=== PATIENT | male | born 1935 | race Caucasian/White ===

== ENCOUNTER 2025-03-25 17:26 | Inpatient (IN) | payer MEDICARE, OTHER, SELFPAY ==
[2025-03-25 11:44] VITALS: BP 125/76
[2025-03-25 12:17] LABS: Hematocrit 51.4 % (39.0-52.0); Hemoglobin 16.6 g/dL (13.0-18.0); Mean Corp Hgb Conc. 32.3 g/dL (33.0-37.0); Mean Corpuscular Volume 106.2 fL (80.0-94.0); Nucleated Red Blood Cells % 0 % (-); Platelet Count 233 10^3/uL (130-400); Red Cell Dist. Width 13.2 % (11.5-14.5)
[2025-03-25 12:31] LABS: ALT (SGPT) 23 U/L (0-50); AST (SGOT) 26 U/L (17-59); Albumin 4.1 g/dl (3.5-5.0); Alkaline Phosphatase 74 U/L (38-126); Blood Urea Nitrogen 30 mg/dl (9-20); Calcium 9.2 mg/dl (8.4-10.2); Carbon Dioxide 20 mmol/L (22-30); Chloride 105 mmol/L (98-107); Glucose 109 mg/dl (70-99); Potassium 4.3 mmol/L (3.5-5.1); Sodium 135 mmol/L (135-145); Total Protein 7.7 g/dl (6.3-8.2); eGFR 44.78
[2025-03-25 13:40] VITALS: BMI 25.8
--- NOTE | 2025-03-25 13:45 | ED.GENMED ---
History of Present Illness
<THERON Shafer - Last Filed: 03/25/25 19:50>
General
Chief Complaint: Abdominal Symptoms
Source: patient
Exam Limitations: none
Time Seen by Provider: 03/25/25 13:41
Nursing documentation reviewed up to this point in time: agreed with
History of Present Illness
History of Present Illness:
89-year-old male presents to the ER for evaluation of loose stool which started February 28. He was diagnosed with C. difficile on March 04. He was started antibiotics February and vancomycin follow-up and completed 10 days of antibiotics.
Patient started with loose stools again 3 to 4 days ago. He has gone approximately 3 times per day. He he does feel slightly tired compared to normal and is not eating or drinking as much because of the diarrhea. He denies any fever or chills.
He denies any abdominal pain.
Phy Exam
<THERON Shafer - Last Filed: 03/25/25 19:50>
General Physical Exam
General Presentation: no apparent distress
General age: appears stated age
General Skin: warm and dry
General Habitus: normal
General Mental: alert
General Hydration: dry mucous membranes
Gastrointestinal Exam
Gastrointestinal Exam: non tender and soft
Course
<THERON Shafer - Last Filed: 03/25/25 19:50>
Orders/Labs/Results
Orders:
Orders
03/25/25 Breakfast
Cholesterol Lowering
At Your Request: Full Participation
Cholesterol Lowering: Sodium, 2 Gram
Low Residue
Cholesterol Lowering
At Your Request: Full Participation
Cholesterol Lowering: Sodium, 2 Gram
03/25/25 11:58
Complete Blood Count/With Diff Urgent
Comprehensive Metabolic Panel Urgent
03/25/25 13:55
0.9% Sodium Chloride 1000 ml [Nss] 1,000 ml IV BOLUS
03/25/25 14:11
Electrocardiogram (*1) Stat
Reason for Study: Other
Other Reason for Exam: chest pain
Cardiac Monitoring- Treatment ONCE
EKG- Treatment ONCE
03/25/25 14:57
Admit/Transfer Patient As Directed
Co-Sign Provider:
Level of Care: Inpatient admission
Assign to:: Medical/Surgical
Physician / Group: Hospitalist
Diagnosis: Diarrhea and renal insufficiency
Reason for Hospitalization: Diarrhea and renal insufficiency
Expected length of stay greater than two midnights?: Yes
ELOS- Estimated Length of Stay in days: 3
I certify the patient meets the requirements for IP care: Yes
03/25/25 14:58
PRN Pain Medication Management As Directed
May give lesser potent ordered pain med per pt: Yes
preference::
Protocol:: Medication orders for pain may be administered in a
manner that supports deferring to patient preference
when the pt is:
- Requesting an ordered lesser potent pain medication.
Least to most potent pain medications are defined
as: acetaminophen < NSAID < tramadol < opioids
(morphine, oxycodone, hydromorphone).
- Requesting a lesser dose of the same medication IF
ORDERED.
- Requesting a less intrusive route of administration
if both routes are prescribed by the provider (PO <
IV).
03/25/25 15:26
Code Status As Directed
Resuscitation Status: Full Code
Activity As Directed
Activity Level: With Assistance
Notify MD As Directed
Notify physician if: Bridge Admission orders placed.
Notify attending physician:
-- upon arrival to unit
OR
-- when patient is identified as an ED hold
Vital Signs As Directed
Frequency: Per unit guidelines
O2 Therapy [RESP] Routine
Titrate/Wean O2 to maintain O2 sat greater than (%): 92
03/25/25 19:23
0.9% Sodium Chloride 1000 ml [Nss] 1,000 ml IV 100 mls/hr
Acetaminophen [Tylenol] 650 mg PO Q4HPRN PRN
Lactobac/Bifidobac [Visbiome] 1 cap PO DAILY
03/25/25 19:23
Admit Patient As Directed
Co-Sign Provider:
Level of Care: Inpatient admission
Assign to:: Medical/Surgical
Physician / Group: Hospitalist
Diagnosis: Diarrhea & ROYR
Reason for Hospitalization: Diarrhea & RORY
Expected length of stay greater than two midnights?: Yes
ELOS- Estimated Length of Stay in days: 3
I certify the patient meets the requirements for IP care: Yes
Activity As Directed
Activity Level: With Assistance
Intake/ Output As Directed
Frequency: Per unit guidelines
Precautions As Directed
Type of Precautions: Contact
Vital Signs As Directed
Frequency: Per unit guidelines
PRN Pain Medication Management As Directed
May give lesser potent ordered pain med per pt: Yes
preference::
Protocol:: Medication orders for pain may be administered in a
manner that supports deferring to patient preference
when the pt is:
- Requesting an ordered lesser potent pain medication.
Least to most potent pain medications are defined
as: acetaminophen < NSAID < tramadol < opioids
(morphine, oxycodone, hydromorphone).
- Requesting a lesser dose of the same medication IF
ORDERED.
- Requesting a less intrusive route of administration
if both routes are prescribed by the provider (PO <
IV).
03/25/25 20:00
Apixaban [Eliquis] 5 mg PO BID
Dorzolamide HCl [Trusopt 2% Ophthalmic Solution] 1 drop OPHTH BID
03/26/25 06:00
Complete Blood Count/With Diff IN AM
Comprehensive Metabolic Panel IN AM
Levothyroxine [Synthroid] 75 mcg PO DAILY@0600
03/26/25 08:00
Atorvastatin [Lipitor] 40 mg PO DAILY
Fidaxomicin [Dificid] 200 mg PO BID
Ramipril [Altace] 10 mg PO DAILY
03/27/25 06:00
Complete Blood Count/With Diff IN AM
Comprehensive Metabolic Panel IN AM
03/28/25 06:00
Complete Blood Count/With Diff IN AM
Comprehensive Metabolic Panel IN AM
03/29/25 06:00
Complete Blood Count/With Diff IN AM
Comprehensive Metabolic Panel IN AM
03/30/25 06:00
Complete Blood Count/With Diff IN AM
Comprehensive Metabolic Panel IN AM
03/31/25 06:00
Complete Blood Count/With Diff IN AM
Comprehensive Metabolic Panel IN AM
04/01/25 06:00
Complete Blood Count/With Diff IN AM
Comprehensive Metabolic Panel IN AM
04/02/25 06:00
Complete Blood Count/With Diff IN AM
Comprehensive Metabolic Panel IN AM
04/03/25 06:00
Complete Blood Count/With Diff IN AM
Comprehensive Metabolic Panel IN AM
04/04/25 06:00
Complete Blood Count/With Diff IN AM
Comprehensive Metabolic Panel IN AM
Abnormal Lab Results
03/25/25
11:58
MCV 106.2 H fL
(80.0-94.0)
MCH 34.3 H pg
(27.0-31.0)
MCHC 32.3 L g/dL
(33.0-37.0)
Absolute Lymphs (auto) 1.0 L 10^3/uL
(1.2-3.4)
Absolute Monos (auto) 1.4 H 10^3/uL
(0.1-0.6)
Lymphocytes % 13.3 L %
(20.5-51.1)
Monocytes % 17.7 H %
(1.7-9.3)
Carbon Dioxide 20 L mmol/L
(22-30)
BUN 30 H mg/dl
(9-20)
Creatinine 1.5 H mg/dL
(0.7-1.3)
Glucose 109 H mg/dl
(70-99)
Total Bilirubin 1.9 H mg/dl
(0.2-1.3)
03/25/25 11:58
03/25/25 11:58
Vital Signs
Initial and Last Documented VS:
Initial Vital Signs
Temp Pulse Resp BP Pulse Ox
98.1 F 79 16 125/76 98
03/25/25 11:44 03/25/25 11:44 03/25/25 11:44 03/25/25 11:44 03/25/25 11:44
Last Documented Vital Signs
Temp Pulse Resp BP Pulse Ox
98.1 F 69 15 126/68 97
03/25/25 11:44 03/25/25 17:15 03/25/25 17:15 03/25/25 17:00 03/25/25 17:15
Equalizing Saw Operator consulted with Physician
Equalizing Saw Operator consulted with physician?: Yes
Name of Physician Consulted: Rosalva
<Osvaldo Kohler MD - Last Filed: 03/25/25 14:06>
Orders/Labs/Results
Orders:
Orders
03/25/25 Breakfast
Cholesterol Lowering
At Your Request: Full Participation
Cholesterol Lowering: Sodium, 2 Gram
Low Residue
Cholesterol Lowering
At Your Request: Full Participation
Cholesterol Lowering: Sodium, 2 Gram
03/25/25 11:58
Complete Blood Count/With Diff Urgent
Comprehensive Metabolic Panel Urgent
03/25/25 13:55
0.9% Sodium Chloride 1000 ml [Nss] 1,000 ml IV BOLUS
03/25/25 14:11
Electrocardiogram (*1) Stat
Reason for Study: Other
Other Reason for Exam: chest pain
Cardiac Monitoring- Treatment ONCE
EKG- Treatment ONCE
03/25/25 14:57
Admit/Transfer Patient As Directed
Co-Sign Provider:
Level of Care: Inpatient admission
Assign to:: Medical/Surgical
Physician / Group: Hospitalist
Diagnosis: Diarrhea and renal insufficiency
Reason for Hospitalization: Diarrhea and renal insufficiency
Expected length of stay greater than two midnights?: Yes
ELOS- Estimated Length of Stay in days: 3
I certify the patient meets the requirements for IP care: Yes
03/25/25 14:58
PRN Pain Medication Management As Directed
May give lesser potent ordered pain med per pt: Yes
preference::
Protocol:: Medication orders for pain may be administered in a
manner that supports deferring to patient preference
when the pt is:
- Requesting an ordered lesser potent pain medication.
Least to most potent pain medications are defined
as: acetaminophen < NSAID < tramadol < opioids
(morphine, oxycodone, hydromorphone).
- Requesting a lesser dose of the same medication IF
ORDERED.
- Requesting a less intrusive route of administration
if both routes are prescribed by the provider (PO <
IV).
03/25/25 15:26
Code Status As Directed
Resuscitation Status: Full Code
Activity As Directed
Activity Level: With Assistance
Notify MD As Directed
Notify physician if: Bridge Admission orders placed.
Notify attending physician:
-- upon arrival to unit
OR
-- when patient is identified as an ED hold
Vital Signs As Directed
Frequency: Per unit guidelines
O2 Therapy [RESP] Routine
Titrate/Wean O2 to maintain O2 sat greater than (%): 92
03/25/25 19:23
0.9% Sodium Chloride 1000 ml [Nss] 1,000 ml IV 100 mls/hr
Acetaminophen [Tylenol] 650 mg PO Q4HPRN PRN
Lactobac/Bifidobac [Visbiome] 1 cap PO DAILY
03/25/25 19:23
Admit Patient As Directed
Co-Sign Provider:
Level of Care: Inpatient admission
Assign to:: Medical/Surgical
Physician / Group: Hospitalist
Diagnosis: Diarrhea & RORY
Reason for Hospitalization: Diarrhea & RORY
Expected length of stay greater than two midnights?: Yes
ELOS- Estimated Length of Stay in days: 3
I certify the patient meets the requirements for IP care: Yes
Activity As Directed
Activity Level: With Assistance
Intake/ Output As Directed
Frequency: Per unit guidelines
Precautions As Directed
Type of Precautions: Contact
Vital Signs As Directed
Frequency: Per unit guidelines
PRN Pain Medication Management As Directed
May give lesser potent ordered pain med per pt: Yes
preference::
Protocol:: Medication orders for pain may be administered in a
manner that supports deferring to patient preference
when the pt is:
- Requesting an ordered lesser potent pain medication.
Least to most potent pain medications are defined
as: acetaminophen < NSAID < tramadol < opioids
(morphine, oxycodone, hydromorphone).
- Requesting a lesser dose of the same medication IF
ORDERED.
- Requesting a less intrusive route of administration
if both routes are prescribed by the provider (PO <
IV).
03/25/25 20:00
Apixaban [Eliquis] 5 mg PO BID
Dorzolamide HCl [Trusopt 2% Ophthalmic Solution] 1 drop OPHTH BID
03/26/25 06:00
Complete Blood Count/With Diff IN AM
Comprehensive Metabolic Panel IN AM
Levothyroxine [Synthroid] 75 mcg PO DAILY@0600
03/26/25 08:00
Atorvastatin [Lipitor] 40 mg PO DAILY
Fidaxomicin [Dificid] 200 mg PO BID
Ramipril [Altace] 10 mg PO DAILY
03/27/25 06:00
Complete Blood Count/With Diff IN AM
Comprehensive Metabolic Panel IN AM
03/28/25 06:00
Complete Blood Count/With Diff IN AM
Comprehensive Metabolic Panel IN AM
03/29/25 06:00
Complete Blood Count/With Diff IN AM
Comprehensive Metabolic Panel IN AM
03/30/25 06:00
Complete Blood Count/With Diff IN AM
Comprehensive Metabolic Panel IN AM
03/31/25 06:00
Complete Blood Count/With Diff IN AM
Comprehensive Metabolic Panel IN AM
04/01/25 06:00
Complete Blood Count/With Diff IN AM
Comprehensive Metabolic Panel IN AM
04/02/25 06:00
Complete Blood Count/With Diff IN AM
Comprehensive Metabolic Panel IN AM
04/03/25 06:00
Complete Blood Count/With Diff IN AM
Comprehensive Metabolic Panel IN AM
04/04/25 06:00
Complete Blood Count/With Diff IN AM
Comprehensive Metabolic Panel IN AM
Abnormal Lab Results
03/25/25
11:58
MCV 106.2 H fL
(80.0-94.0)
MCH 34.3 H pg
(27.0-31.0)
MCHC 32.3 L g/dL
(33.0-37.0)
Absolute Lymphs (auto) 1.0 L 10^3/uL
(1.2-3.4)
Absolute Monos (auto) 1.4 H 10^3/uL
(0.1-0.6)
Lymphocytes % 13.3 L %
(20.5-51.1)
Monocytes % 17.7 H %
(1.7-9.3)
Carbon Dioxide 20 L mmol/L
(22-30)
BUN 30 H mg/dl
(9-20)
Creatinine 1.5 H mg/dL
(0.7-1.3)
Glucose 109 H mg/dl
(70-99)
Total Bilirubin 1.9 H mg/dl
(0.2-1.3)
03/25/25 11:58
03/25/25 11:58
Vital Signs
Initial and Last Documented VS:
Initial Vital Signs
Temp Pulse Resp BP Pulse Ox
98.1 F 79 16 125/76 98
03/25/25 11:44 03/25/25 11:44 03/25/25 11:44 03/25/25 11:44 03/25/25 11:44
Last Documented Vital Signs
Temp Pulse Resp BP Pulse Ox
98.1 F 69 15 126/68 97
03/25/25 11:44 03/25/25 17:15 03/25/25 17:15 03/25/25 17:00 03/25/25 17:15
<THERON Shafer - Last Filed: 03/25/25 19:50>
MDM/Problems Addressed
Differential Diagnosis Includes:
Not limited to recurrence of C. difficile, dehydration
MDM/Problems Addressed:
89-year-old male presents back with diarrhea. He was recently diagnosed with C. difficile March 04 and completed 10 days of Flagyl and vancomycin. Symptoms started again several days ago. He denies any pain. Denies any fevers abdomen soft
nontender he is afebrile. He is dry on exam and is in acute renal insufficiency. Fluids ordered. Case reviewed with ED physician. Would recommend admission. Case also reviewed with infectious disease C. difficile a likely be positive again we
will hold off on additional culture. Will start oral Dificid
<THERON Shafer - Last Filed: 03/25/25 19:50>
*Pulse Oximetry
SaO2: 98
Oxygen Mode of Delivery: Room air
Patient hypoxic: no
*Critical Care Note
Total Time (30-74mins, 75-104mins- exclusive of procedures): Not Applicable
<THERON Shafer - Last Filed: 03/25/25 19:50>
Patient Management
Discussion with other providers: [place] (infectious disease )
ED Attending Note
<THERON Shafer - Last Filed: 03/25/25 19:50>
-
Portions of this chart may have been created with voice recognition software.� Occasional wrong word or��sound alike� substitutions may have occurred due to the inherent limitations of voice recognition software.
<Osvaldo Kohler MD - Last Filed: 03/25/25 14:06>
ED Attending Note
Patient seen and examined by attending physician: Yes
I performed the substantive portion of visit, reviewed & personally made and approve the management plan that is documented in note by myself or CELSO.: Yes
ED Attending Note:
I have seen and evaluated the patient with a fnol-[id number]-thnu encounter. I have spoken to the [CELSO] and involved in the medical history, the physical exam, medical decision making.
Evaluation and management service: agree unless noted differently below.
Results interpretation: agree unless noted differently below.
89-year-old male with recent C. difficile presenting to the emergency department recurrent diarrhea. Patient states that on March 04 he was diagnosed with C. difficile and placed on vancomycin and Flagyl. He finished them about 3 to 4 days ago
and had recurrent symptoms. He denies any nausea or vomiting. No lightheadedness dizziness. No abdominal pain. No blood in his stool. On arrival vitals are unremarkable. On exam patient does have slightly dry oral mucosa. His abdomen is
benign nondistended nontender. 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 Retesting will probably be positive. Discussed with infectious disease who is in agreement that the test will be positive. Recommend treating with Dificid.
Patient does have an RORY on labs so will admit for IV fluids and antibiotics.
Discharge Plan
Departure
Patient Disposition: Admit
Date of Disposition: 03/25/25
Time of Disposition: 14:08
Admit to: Med/Surg
Admit to doctor: hospitalist
Presentation/result/management discussed w/ accepting MD/DO: Hospitalist
Patient with high blood pressure during this ER visit?: No
Condition: Fair
Covid-19: Not Applicable
Discharge Problem:
Diarrhea, Acute kidney insufficiency
Interventions
Interventions:
*Risk Screen - Suicide Last Done: 03/25/25 11:44
*General Assessment Last Done: 03/25/25 11:44
*Neglect/Abuse Screening Last Done: 03/25/25 11:44
*ED- Fall Risk Assessment Last Done: 03/25/25 13:40
*ED COVID-19 Vaccine History Last Done: 03/25/25 13:40
*ED Influenza Vaccine History Last Done: 03/25/25 13:40
*Nursing Disposition Last Done: 03/25/25 19:20
XH-Truvmg-Ywgzjvkcic Assessment Last Done: 03/25/25 13:40
Discharge Date and Time
Discharge Date/Time: 03/25/25 19:20
[2025-03-25] MEDS: NSS 1000 IV ×2 (14:00→21:33)
--- NOTE | 2025-03-25 15:50 | CM ---
Chart reviewed and spoke with patient and son Jatinder at bedside
Patient lives alone in a 2 story home with 2 FREDY with rails 14 steps to full bath
ambulating with cane and drives
Pt states he is independent
Grown 5 kids ; Dtr Roslyn lives in [place] and checks on him daily
Another dtr in [place]
Son Nriaj usually stays with patient for 3 -4 months yearly. Niraj would stay with pt for another month
Son Jatinder is in [place] but he is very involved in his care also
DME cane
PCP Dr. Susan Perry
RX plan yes
Pharmacy [facility] [address] in [place]
VN use; pt and son do not remember the name of C
SNF : [facility] last year after a fall with rib fracture and concussion
'It was good 12 years ago when my was there but it is NOT anymore'
DCP is to return with services vs SNF pending w/u and PT eval
Family is very supportive
CM will continue to follow up for any dcp needs
[2025-03-25 16:30] VITALS: BP 127/78
--- NOTE | 2025-03-25 16:57 | HPS.HSE ---
Addendum entered and electronically signed by Sahil Martinez MD 03/25/25 20:48:
Attending Addendum-
I performed a history and physical exam of the patient and discussed his management with the resident. I reviewed the resident's note and agree with the documented findings and plan of care CC/HPI- Patient presents to ED with diarrhea x 3 days,
states he has had multiple episodes per day. Feels weak and decreased intake due to fear of diarrhea. recent dx c diff completed 10 day course abx. Denies fevers chills abd pain NV. Seen with son present. Full 12 point ROS reviewed and negative
except as documented Exam- vitals reviewed in EMR GEN-NAD Heart irreg irreg lungs clear abd soft NT ND pos BS LE no edema Neuro AAO x 3
Plan:
# Recurrent C diff infection
- recently completed course of vanco/flagyl on 03/14
- start Dificid x 10 days
- cont IVF
- CTM closely for worsening of sxs
# RORY-prerenal
- cont IVF, hold ramipril
-repeat BMP in am
# Permanent A fib
- cont eliquis
# HTN- hold ramipril due to RORY
# Hypothyroidism- cont levo
# CAD s/p stents- cont atorvastatin
DVTp-eliquis
CODE-FULL
Dispo DC home in am
ACP
Patient consented to discuss, was with son, time spent explanation of advance directives, changes in health status, patient�s health care wishes if the patient becomes unable to make health decisions, goals of care, code status, and prognosis- 16
minutes
Time spent coordinating care, review of plan of care with resident, personally reviewed previous records in EMR, med rec, labs, radiology, d/w nursing, family total time documented is exclusive of any additional time listed that was spent in advance
care planning discussion -�75 minutes
Original Note:
Family Physician
-
Family Physician: Susan Perry,
Chief Complaint
-
Diarrhea
History of Present Illness
Mr. Jatinder Romo (Walter) is a 89-year-old man with a PMH notable for permanent A-fib (Eliquis), CAD s/p 2 stents, hyperlipidemia, hypertension, hypothyroidism, and glaucoma, who presented from home with diarrhea for 3 days after recently finishing
C. difficile antibiotic course.
He developed diarrhea on February 28. He was diagnosed with C. difficile on March 04. He completed a 10-day course of Flagyl and vancomycin. His diarrhea restarted 3 days ago, with around 3 bowel movements per day.
In the ED, vital signs were stable. CBC normal. CMP with creatinine of 1.5, BUN 30, bicarb 20, glucose 109, total bili 1.9. Baseline creatinine unknown, as he does not have prior labs in this EMR. He received IV fluids.
Medical History
Past Medical History
Past Medical History: Reports Arrhythmia (Persistent A-fib (Eliquis)), CAD (Status post 2 stents; atorvastatin and Eliquis), HTN (Ramipril), Hypercholesterolemia (Atorvastatin), Hypothyroidism (Levothyroxine) and Other (Glaucoma)
Past Surgical History: Reports None
Social History
Tobacco: Non-smoker
Alcohol: Occasional
Drug: None
Living: Alone (1 son lives with him for 3 months of the year and is living with him currently)
Employment: Retired
Family History
Family History: Not pertinent
Allergies / Home Medications
Allergies reflects when Allergies were last updated in [employer].
Home Medications with original date entered in [employer]
Allergy/Medication List:
Allergies
Allergy/AdvReac Type Severity Reaction Status Date / Time
No Known Allergies Allergy Verified 03/25/25 11:49
Home Medications
apixaban 5 mg tablet (Eliquis) 5 mg PO BID Blood Clot Prevention/Tx 03/25/25
atorvastatin 40 mg tablet (Lipitor) 40 mg PO DAILY High Cholesterol 03/25/25
dorzolamide-timolol (PF) 2 %-0.5 % eye drops in a dropperette (Cosopt (PF)) 1 drp BOTH EYES BID Eye Condition 03/25/25
levothyroxine 75 mcg tablet (Synthroid) 75 mcg PO DAILY Thyroid 03/25/25
ramipril 10 mg capsule 10 mg PO DAILY Heart Disease/Condition 03/25/25
Review of Systems
-
History Source: Patient
A 12 point ROS was completed and negative except as noted: Yes
Physical Exam
Vital Signs
Vital Signs
Temp Pulse Resp BP Pulse Ox
98.1 F 65 17 125/76 98
03/25/25 11:44 03/25/25 16:15 03/25/25 16:15 03/25/25 11:44 03/25/25 16:15
Physical Exam
General: Well Developed, Well Nourished, No Apparent Distress, Comfortable and Conversant
HEENT: NormoCephalic, Anicteric, Atraumatic, No Ptosis, Nose Appears Normal, Ears Appear Normal and Hearing Impaired
Respiratory: Clear
Cardiac: S1/S2 and Regular Rhythm
GI: Soft, Non Tender, Non Distended and Normal Bowel Sounds
Musculoskeletal: Clubbing, No Clubbing and Cyanosis
Skin: Warm and Dry
Neuro: Awake, Alert, Nonfocal/grossly intact and Cranial Nerves Intact
Psych: Calm
Laboratory Results
-
03/25/25 11:58
03/25/25 11:58
Laboratory Results
Total Bilirubin 1.9 mg/dl (0.2-1.3) H 03/25/25 11:58
AST 26 U/L (17-59) 03/25/25 11:58
ALT 23 U/L (0-50) 03/25/25 11:58
Alkaline Phosphatase 74 U/L (38-126) 03/25/25 11:58
Impression/Plan
-
IMPRESSION:
Mr. Jatinder Romo (Walter) is a 89-year-old man with a PMH notable for permanent A-fib (Eliquis), CAD s/p 2 stents, hyperlipidemia, hypertension, hypothyroidism, and glaucoma, who presented from home with recurrent diarrhea for 3 days after recently
finishing C. difficile antibiotic course.
He developed diarrhea on February 28. He was diagnosed with C. difficile on March 04. He completed a 10-day course of Flagyl and vancomycin. His diarrhea restarted 3 days ago, with around 3 bowel movements per day.
In the ED, vital signs were stable. CBC normal. CMP with creatinine of 1.5, BUN 30, bicarb 20, glucose 109, total bili 1.9. Baseline creatinine unknown, as he does not have prior labs in this EMR. He received IV fluids.
PLAN:
#Recurrent C. difficile
S/p completing Flagyl and vancomycin 10-day course
C. difficile antigen/toxin testing not pursued, since it will be positive shortly after prior C. difficile infection whether or not the patient has needed
� Fidaxomicin 200 mg every 12 hours for 10 days
� Will ask patient case manager to investigate enrique for this patient's insurance and inquire if it is cost preoperative
� Low residue diet
� Probiotic
#Renal insufficiency
Creatinine 1.5, BUN 30 on admission
Baseline creatinine unknown, as no prior labs in this EMR. Patient's son will attempt to find prior labs at outside facility
� IV normal saline at 100 mL/h
� Trend creatinine
#Permanent A-fib
� Continue Eliquis 5 mg p.o. twice daily
#CAD status post 2 stents
#HLD
� Continue atorvastatin 40 mg p.o. daily
� Continue Eliquis 5 mg p.o. twice daily
#Hypertension
� Continue ramipril 10 mg p.o. daily
#Hypothyroidism
� Continue levothyroxine 75 mcg p.o. daily
#Glaucoma
� Continue dorzolamide�timolol eyedrops
DVT prophylaxis: Eliquis 5 mg p.o. twice daily
CODE STATUS: Full code
[2025-03-25 17:00] VITALS: BP 126/68
[2025-03-25] MEDS: DIFICID 200 MG PO (17:55)
[2025-03-25 19:42] VITALS: BMI 25.0
--- NOTE | 2025-03-25 19:44 | PTCARENOTE ---
Pt arrived to unit approx 1929, AAOx3, oriented to unit, bed in lowest position, bed alarm on, bed locked, and call colón in reach.
[2025-03-25 20:03] VITALS: BP 131/74
[2025-03-25] MEDS: ELIQUIS 2.5 MG PO (21:33)
[2025-03-25] MEDS: TRUSOPT 2% OPHTHALMIC SOLUTION 1 DROP OPHTH (21:34)
[2025-03-25] MEDS: VISBIOME 1 CAP PO (21:34)
[2025-03-25 23:30] VITALS: BP 143/65
[2025-03-26 00:16] VITALS: BMI 25.0
[2025-03-26] MEDS: SYNTHROID 75 MCG PO (06:25)
[2025-03-26] MEDS: NSS 1000 IV (06:25)
[2025-03-26 07:00] VITALS: BP 142/72
[2025-03-26 08:03] LABS: Hematocrit 43.8 % (39.0-52.0); Hemoglobin 14.8 g/dL (13.0-18.0); Mean Corp Hgb Conc. 33.8 g/dL (33.0-37.0); Mean Corpuscular Volume 102.1 fL (80.0-94.0); Nucleated Red Blood Cells % 0 % (-); Platelet Count 209 10^3/uL (130-400); Red Cell Dist. Width 13.0 % (11.5-14.5)
[2025-03-26 08:32] LABS: ALT (SGPT) 20 U/L (0-50); AST (SGOT) 24 U/L (17-59); Albumin 3.2 g/dl (3.5-5.0); Alkaline Phosphatase 70 U/L (38-126); Blood Urea Nitrogen 26 mg/dl (9-20); Calcium 8.2 mg/dl (8.4-10.2); Carbon Dioxide 21 mmol/L (22-30); Chloride 109 mmol/L (98-107); Estimated Creatinine Clearance 43 ml/min; Glucose 100 mg/dl (70-99); Potassium 3.6 mmol/L (3.5-5.1); Sodium 139 mmol/L (135-145); Total Protein 6.0 g/dl (6.3-8.2); eGFR 53.17
--- NOTE | 2025-03-26 09:06 | W.PN.HOSP.TC ---
Addendum entered and electronically signed by Pietro Miller MD 03/26/25 14:17:
I saw and evaluated the patient. I reviewed the resident�s note and agree with findings and plan as documented in the resident�s note.
First C. difficile recurrence -patient was diagnosed with C. difficile colitis earlier this month after having a prostate procedure. Patient was started on course of vancomycin and Flagyl by urologist. Patient had resolution of diarrhea with
formed stools in between. Came back with new onset of liquid diarrhea. No associated abdominal pain/nausea/vomiting. Patient is afebrile not in shock. Renal function were minimally impaired which has improved post IV hydration.
Case discussed with infectious disease physician and recommended fidaxomicin 14-day course, patient is aware that insurance may not cover and may have to pay [id number] which patient is willing to do. If patient not able to get oral fidaxomicin
will require to be put on a tapering course of oral vancomycin.
Patient to follow-up with infectious disease physician in the office.
Acute kidney injury -improved post IV hydration. Encourage oral intake for next few days postdischarge.
Patient is medically stable for discharge.
Original Note:
Today's Communication/Plan
-
Corresponded with ID regarding plan: Dificid 200 mg twice daily for 14 days. Outpatient ID follow-up in 2 to 4 weeks.
Discharged patient today.
Assessment / Plan
Assessment / Plan
IMPRESSION:
Mr. Jatinder Romo (Walter) is a 89-year-old man with a PMH notable for permanent A-fib (Eliquis), CAD s/p 2 stents, hyperlipidemia, hypertension, hypothyroidism, and glaucoma, who presented from home with recurrent diarrhea for 3 days after recently
finishing C. difficile antibiotic course.
He developed diarrhea on February 28. He was diagnosed with C. difficile on March 04. He completed a 10-day course of Flagyl and vancomycin. His diarrhea restarted 3 days ago, with around 3 bowel movements per day.
In the ED, vital signs were stable. CBC normal. CMP with creatinine of 1.5, BUN 30, bicarb 20, glucose 109, total bili 1.9. Baseline creatinine unknown, as he does not have prior labs in this EMR. He received IV fluids.
PLAN:
#Recurrent C. difficile
S/p completing Flagyl and vancomycin 10-day course
C. difficile antigen/toxin testing not pursued, since it will be positive shortly after prior C. difficile infection whether or not the patient has needed
� Fidaxomicin 200 mg every 12 hours. 2 doses received inpatient. 14-day course per ID
� Informed patient and family members that Dificid can be expensive and advised them to call his pharmacy to ask for the enrique of Dificid with his insurance. Patient and family members stated they want the best treatment, and asking the pharmacy
for the enrique as high of a priority
� Counseled patient to follow-up with ID outpatient in 2 to [address] Dobbins
� Low residue diet
� Probiotic
#Renal insufficiency
Creatinine 1.5, BUN 30 on admission. Creatinine 1.3 next day
Baseline creatinine unknown, as no prior labs in this EMR. Patient's son will attempt to find prior labs at outside facility
� IV normal saline. Considering not renewing due to hyperchloremia, vitals stable with blood pressure in the 140s and heart rate 60s, and creatinine decreasing to 1 point
� Trend creatinine
#Permanent A-fib
� Continue Eliquis 5 mg p.o. twice daily
#CAD status post 2 stents
#HLD
� Continue atorvastatin 40 mg p.o. daily
� Continue Eliquis 5 mg p.o. twice daily
#Hypertension
� Continue ramipril 10 mg p.o. daily
#Hypothyroidism
� Continue levothyroxine 75 mcg p.o. daily
#Glaucoma
� Continue dorzolamide�timolol eyedrops
DVT prophylaxis: Eliquis 5 mg p.o. twice daily
CODE STATUS: Full code
Anticipated Discharge: Today
Subjective/Interval History
-
Date of Service: March 26, 2025
No acute events overnight. Patient states he is feeling better overall and less weak. Patient does not feel his diarrhea has changed much, but is slightly more solid.
Objective Data
-
Labs:
Laboratory Results
03/26/25
07:02
WBC 7.7
Hgb 14.8
Hct 43.8
Plt Count 209
Sodium 139
Potassium 3.6
Chloride 109 H
Carbon Dioxide 21 L
BUN 26 H
Creatinine 1.3
Glucose 100 H
Calcium 8.2 L
Total Bilirubin 1.0
AST 24
ALT 20
Alkaline Phosphatase 70
Vital Signs:
Vital Signs
Temp Pulse Resp BP Pulse Ox
97.8 F 60 20 142/72 95
03/26/25 07:00 03/26/25 07:00 03/26/25 07:00 03/26/25 07:00 03/26/25 07:00
Review of Systems
-
History Source: Patient
All other systems: Reviewed and negative
Physical Exam
-
General: Well Developed, Well Nourished, No Apparent Distress, Comfortable and Conversant
HEENT: Normocephalic, Atraumatic, Anicteric, Nose Appears Normal and Ears Appear Normal
Respiratory: Clear to Auscultation
Cardiac: Regular Rhythm and S1/S2
GI: Soft, Nontender, Nondistended and Normal Bowel Sounds
Musculoskeletal: No Clubbing, No Cyanosis and No Edema
Skin: Warm and Dry
Neuro: Awake and Alert
Psych: Calm
[2025-03-26] MEDS: ELIQUIS 2.5 MG PO (09:13)
[2025-03-26] MEDS: TIMOPTIC 0.5% OPHTHALMIC SOLUTION 1 DROP BOTH EYES (09:14)
[2025-03-26] MEDS: LIPITOR 40 MG PO (09:14)
[2025-03-26] MEDS: VISBIOME 1 CAP PO (09:14)
[2025-03-26] MEDS: TRUSOPT 2% OPHTHALMIC SOLUTION OPHTH ×2 (09:14→09:18)
[2025-03-26] MEDS: DIFICID 200 MG PO (09:14)
[2025-03-26 10:44] LABS: Vitamin B12 687 pg/ml (239-931)
[2025-03-26 12:00] LABS: Folate 8.9 ng/ml (2.76-20)
--- NOTE | 2025-03-26 14:31 | CM ---
Chart reviewed plan is to home today, no needs, IMM completed.
Plan; Home no needs.
--- NOTE | 2025-03-26 14:43 | W.DCSUMMARY ---
Discharge Summary
Discharge Data
Date of Admission: 03/25/25
Date of Discharge: 03/26/25
Total time spent discharging patient (in min): 35
-
Pending Results: No
Hospital Course
Mr. Jatinder Romo (Walter) is a 89-year-old man with a PMH notable for permanent A-fib (Eliquis), CAD s/p 2 stents, hyperlipidemia, hypertension, hypothyroidism, and glaucoma, who presented from home with recurrent diarrhea for 3 days after recently
finishing C. difficile antibiotic course.
He developed diarrhea on February 28. He was diagnosed with C. difficile on March 04. He completed a 10-day course of Flagyl and vancomycin. His diarrhea restarted 3 days ago, with around 3 bowel movements per day.
In the ED, vital signs were stable. CBC normal. CMP with creatinine of 1.5, BUN 30, bicarb 20, glucose 109, total bili 1.9. Baseline creatinine unknown, as he does not have prior labs in this EMR. He received IV fluids.
IV fluids were continued. Patient tolerated low residue diet, but did not eat much due to worry about having an urgent bowel movement. He endorsed feeling less weak, and wanted to return home. Discharge patient with instructions to finish 14 days
of Dificid 200 mg twice daily (13 days left). Advised patient and family that if they encountered difficulties with obtaining Dificid for any reason, we are happy to prescribe oral vancomycin for his C. difficile recurrence (see regimen recommended
by ID below). Instructed patient to see infectious disease in 2 to 4 weeks to monitor for resolution of see C. difficile diarrhea.
Primary diagnosis:
C. difficile recurrence
Secondary diagnoses
Renal insufficiency
Coronary artery disease
Hyperlipidemia
Hypothyroidism
Hypertension
#C. difficile Second episode
S/p completing Flagyl and vancomycin 10-day course
C. difficile antigen/toxin testing not pursued, since it will be positive shortly after prior C. difficile infection whether or not the patient has needed
� Fidaxomicin 200 mg every 12 hours. 2 doses received inpatient. 14-day course per ID
� Informed patient and family members that Dificid can be expensive and advised them to call his pharmacy to ask for the enrique of Dificid with his insurance. Patient and family members stated they want the best treatment, and asking the pharmacy
for the enrique as high of a priority
� Counseled patient to follow-up with ID outpatient in 2 to [address] Dobbins
� Advised pt and family if they have any difficulty obtaining Dificid, we can prescribe alternative regimen per ID: Vanco QID x 14 days, then Vanco 250 qd x 7 days, then Vanco 250 qOD x 28 - 56 days
� Low residue diet
� Probiotic
#Renal insufficiency�resolving/resolved
Creatinine 1.5, BUN 30 on admission. Baseline creatinine unknown, as no prior labs in this EMR.
Patient's son will attempt to find prior labs at outside facility
� IV normal saline. Considering not renewing due to hyperchloremia, vitals stable with blood pressure in the 140s and heart rate 60s, and creatinine decreasing to 1 point
� Creatinine 1.3 next day/day of discharge. Renal sufficiency resolving/resolved
Discharge Plan
-
Patient Disposition: Home (Routine Discharge)
Discharge Diagnosis/Procedures: C. difficile episode #2
Renal insufficiency
Permanent A-fib
Coronary artery disease
Hyperlipidemia
Hypertension
Hypothyroid
Glaucoma
Condition: Good
Diet: Low Cholesterol and Low Sodium
Activity: As tolerated
Driving Restrictions: As prior to admission
Bathing Restrictions: None
Activity Restrictions/Additional Instructions:
If you have any difficulty obtaining Difficid, please contact Dr. Pietro quezada or Dr. Amaya for oral vancomycin script. Please call hospital main number [phone] and press '0' for the bench lathe operator and ask to speak with either physician.
Referrals:
Pratik Dobbins DO [Active, Infectious Diseases] - in two to four weeks
Referral Note: C. difficile #2 episode
Susan Perry DO [Family Provider, Family Practice]
Additional Discharge Medication Instructions: Please take Dificid (fidaxomicin) 200 mg twice daily to complete 14-day course (13 more days).
Please see infectious disease Dr. Dobbins in 2 to 4 weeks to follow-up on your C. difficile diarrhea.
Please follow-up with your primary care provider within a week regarding this hospitalization.
Prescriptions:
New
fidaxomicin 200 mg tablet
200 mg PO Q12H Qty: 28 0RF
Continued
atorvastatin [Lipitor] 40 mg Tablet
40 mg PO DAILY
levothyroxine [Synthroid] 75 mcg Tablet
75 mcg PO DAILY
ramipril 10 mg Capsule
10 mg PO DAILY
dorzolamide-timolol (PF) [Cosopt (PF)] 2-0.5 % Dropperette
1 drp BOTH EYES BID
Eliquis 5 mg Tablet
5 mg PO BID
Discharge Orders:
Discharge Patient (As Directed); Ordered 03/26/25
Ordered By: Uma Leon
Discharge Date and Time
Print Language: MEXICAN
[2025-03-26 15:00] VITALS: BP 143/68
--- NOTE | 2025-03-26 15:41 | PTCARENOTE ---
Discharge instructions and medications reviewed with patient and patient's son. IV removed. All belongings accounted. Patient escorted by family member down to main lobby for discharge to home.
== END 2025-03-26 16:38 | disposition home or self-care (01) | DRG 372 ==
LOC: 4 WEST ACU 17:26
PROVIDERS: ADMITTING PHYSICIAN Family Medicine; ATTENDING PHYSICIAN Hospitalist; EMERGENCY PHYSICIAN Student in an Organized Health Care Education/Training Program; FAMILY PHYSICIAN Family Medicine
DX: A04.71 Enterocolitis due to Clostridium difficile, recurrent (principal); I48.21 Permanent atrial fibrillation; N17.9 Acute kidney failure, unspecified; E03.9 Hypothyroidism, unspecified; I25.10 Atherosclerotic heart disease of native coronary artery without angina pectoris; E78.5 Hyperlipidemia, unspecified; I10 Essential (primary) hypertension; H40.9 Unspecified glaucoma; Z79.899 Other long term (current) drug therapy; Z79.01 Long term (current) use of anticoagulants; Z79.890 Hormone replacement therapy; Z86.19 Personal history of other infectious and parasitic diseases; Z95.5 Presence of coronary angioplasty implant and graft
CPT/HCPCS: 80053; 82607; 82746; 85025; 93005; 96360; 99284